=== PATIENT | male | born 1970 | race Caucasian/White ===

== ENCOUNTER 2017-05-25 09:40 | Emergency (ER) | payer OTHER ==
[~2017-05-25] VITALS: Ht 172.7 cm; Wt 65.0 kg
[2017-05-25 09:47] VITALS: Ht 172.7 cm; Wt 65.0 kg
--- NOTE | 2017-05-25 10:15 | ERD ---
ER Documentation Chief Complaint Date/Time DATE: 05/25/17 TIME: 10:08 Chief Complaint medical clearance for booking c/o back pain HPI 47-year-old, undomiciled male with a history of sciatica and lumbar disc disease male presents to the ED via ambulance and [employer] custody for pre-booking clearance complaining of back spasms. When patient was told he was being arrested he began complaining of back pain and spasms. No acute injury. No weakness or numbness. No urinary or fecal incontinence. Denies abdominal pain , nausea vomiting diarrhea or constipation. No chest pain or palpitations. No fevers or chills. ROS All systems reviewed and are negative except as per history of present illness. Allergies Allergies: Coded Allergies: No Known Allergy (Unverified , 05/25/17) PMhx/Soc Reviewed in chart. As per HPI. History of Surgery: No Anesthesia Reaction: No Hx Neurological Disorder: No Hx Respiratory Disorders: Yes (ASTHMA ) Hx Cardiac Disorders: No Hx Psychiatric Problems: Yes (DEPRESSION ) Hx Miscellaneous Medical Probl: Yes (SCIATICA ) Hx Alcohol Use: Yes Hx Substance Use: Yes (Marijuana) Hx Tobacco Use: Yes Smoking Status: Current every day smoker FmHx Not relevant to presenting complaint Physical Exam Vitals Vital Signs Date Time Temp Pulse Resp B/P Pulse Ox O2 Delivery O2 Flow Rate FiO2 05/25/17 09:47 98.1 80 18 118/84 99 Physical Exam Const: Poor hygiene, alert, no acute distress Head: Atraumatic Eyes: Normal Conjunctiva ENT: Normal External Ears, Nose and Mouth. Neck: Full range of motion. Nontender Resp: Breath sounds equal and clear to auscultation bilaterally Cardio: Regular rate and rhythm, no murmurs Abd: Soft, non tender, non distended. Normal bowel sounds Skin: No petechiae or rashes Back: Mild diffuse lumbar muscle tenderness but no midline bony tenderness or step-off. Ext: No cyanosis, or edema. Pulses 4+ in all extremities. Neur: Awake and alert. Motor and sensory equal bilaterally. No focal deficit observed. Psych: Normal Mood and Affect Results 24 hrs Current Medications Medications (Trade) Dose Ordered Sig/Janeth Route PRN Reason Start Time Stop Time Status Last Admin Dose Admin Ibuprofen (Motrin) 600 mg ONCE ONCE PO 05/25/17 10:30 8/2/17 10:31 05/25/17 10:07 Procedures/MDM DOCUMENTS REVIEWED: ED nurse, EMS, no prior records MEDICAL DECISION MAKIN-year-old, undomiciled male with a history of sciatica and lumbar disc disease male presents to the ED via ambulance and [employer] custody for pre-booking clearance complaining of back spasms. Patient presents with atraumatic back pain. Although infection, malignancy, GI, and vascular causes been considered patient's clinical presentation is most consistent with a musculoskeletal cause. There is neither evidence of acute neurologic damage nor loss of function and thus advanced imaging studies are deferred. Patient treated conservatively with appropriate pain control and discharge with precautionary instructions and outpatient follow-up as counseled. Medically cleared for discharge and [employer] custody and incarceration. Counseled patient regarding diagnostic workup, diagnosis and need for followup. Understands to return to ED if symptoms recur, worsen or any other concerns. Departure Diagnosis: Primary Impression: Acute exacerbation of chronic low back pain Additional Impression: Medical clearance for incarceration Condition: Stable JONATAN BANEGAS MD May 25, 2017 10:15
[2017-05-25] MEDS ORDERED: IBUPROFEN 600 MG TAB PO ONE (10:30)
[2017-05-25] MEDS ORDERED: IBUP-1542 PO (10:39)
[2017-05-25 10:45] VITALS: BP 127/62; PULSE 88; RESP 18
== END 2017-05-25 10:46 ==
LOC: E/R 09:40
DX: M54.5 Low back pain (principal); J45.909 Unspecified asthma, uncomplicated; F17.210 Nicotine dependence, cigarettes, uncomplicated
CPT/HCPCS: 99283